=== PATIENT | male | born 1990 | race Caucasian/White ===

== ENCOUNTER 2023-04-24 23:35 | Emergency (ER) | payer BC, SELFPAY ==
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
[2023-04-24 23:39] VITALS: BP 138/73; PULSE 77; RESP 20; TEMP 37.1; O2SAT 100
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
[2023-04-25 00:40] VITALS: O2SAT 98
[2023-04-25 00:45] VITALS: O2SAT 99
[2023-04-25 00:47] LABS: Basophils Absolute Auto 0.1 K/mm3 (0.0-0.1); Eosinophils Absolute Auto 0.5 K/mm3 (0-0.3); Eosinophils Percent Auto 4.9 % (0-4.4); Hemoglobin 9.6 g/dL (14.0-18.0); Immature Granulocyte Absolute 0.28 K/mm3 (0.00-0.031); Lymphocytes Absolute Auto 2.64 K/mm3 (0.9-3.2); Lymphocytes Percent Auto 28.4 % (18.3-44.2); Mean Corpuscular Hemoglobin 19.3 pg (26-34); Mean Corpuscular Volume 62.4 fl (80-100); Monocytes Absolute Auto 0.7 K/mm3 (0.1-0.6); Monocytes Percent Auto 7.9 % (2.6-8.5); Neutrophils Absolute Auto 5.1 K/mm3 (1.3-6.7); Neutrophils Percent Auto 54.8 % (45.5-73.1); Platelet Count Result 313 k/mm3 (150-375); Red Blood Count 4.97 M/mm3 (4.6-6.20); Red Cell Distribution Width 18.2 % (11.5-14.5); White Blood Count 9.3 K/mm3 (4.5-10.0)
[2023-04-25 00:55] LABS: Prothrombin Time 13.2 Seconds (11.1-14.7)
[2023-04-25 00:56] LABS: Partial Thromboplastin Time 31.2 SECONDS (22.3-36.8)
[2023-04-25 00:57] LABS: Anion Gap 5 mmol/L (8-16); Blood Urea Nitrogen 14 mg/dL (9-20); Calcium 7.9 mg/dL (8.4-10.2); Carbon Dioxide 29 mmol/L (22-30); Chloride 103 mmol/L (98-107); Estimated CRCL calculation 109 ml/min; Estimated Glomerular Filt Rate > 60; Glucose 159 mg/dL (65-110); Potassium 3.4 mmol/L (3.4-5.0); Sodium 137 mmol/L (137-145)
== END 2023-04-25 02:45 | disposition home or self-care (01) ==
PROVIDERS: Emergency Provider Emergency Medicine
DX: R04.2 Hemoptysis (principal); S27.89 Injury of other specified intrathoracic organs; S22.060S Wedge compression fracture of T7-T8 vertebra, sequela; X95.9XXS Assault by unspecified firearm discharge, sequela
CPT/HCPCS: 36415; 71275; 80048; 85025; 85610; 85730; 99284; Q9967

== ENCOUNTER 2024-02-01 11:11 | Emergency (ER) | payer SELFPAY ==
[2024-02-01 11:14] VITALS: BP 151/72; PULSE 99; RESP 20; TEMP 36.9; O2SAT 97
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
== END 2024-02-01 12:04 | disposition home or self-care (01) ==
LOC: ANHED 11:39
PROVIDERS: Emergency Provider Emergency Medicine
DX: K04.7 Periapical abscess without sinus (principal)
CPT/HCPCS: 99283